=== PATIENT | female | born 1955 | race Caucasian/White ===

== ENCOUNTER 2018-08-16 05:34 | Emergency (ER) | payer OTHER, MEDICAID ==
[~2018-08-16] VITALS: Ht 175.3 cm; Wt 61.2 kg
--- NOTE | 2018-08-16 05:34 | NUR ---
Placed in room 2 . Placed on monitoring specialist, blood pressure machine and pulse oximeter. To gown for exam. Side rails up.
[2018-08-16 05:35] VITALS: BP_SYST 127
--- NOTE | 2018-08-16 05:45 | NUR ---
#18 gauge angiocath placed to RT AC. Use of asceptic technique. Opsite placed over site. Blood return noted. Blood for lab drawn from site. Flushed with 10 cc of normal saline. No evidence of infiltration noted. Patient tolerated well.
--- NOTE | 2018-08-16 05:48 | NUR ---
ER at bedside examining patient.
[2018-08-16] MEDS ORDERED: NACL 0.9% 1,000 ML IV ONE (05:50)
--- NOTE | 2018-08-16 05:59 | NUR ---
Xray performed at the bedside,pt tolerated well.
[2018-08-16] MEDS ORDERED: ASPIRIN 81 MG TAB.CHEW PO ONE (06:00)
[2018-08-16] MEDS ORDERED: KETOROLAC TROMETHAMINE 30 MG VIAL IVP ONE (06:00)
--- NOTE | 2018-08-16 06:00 | NUR ---
Pt c/o mid sternal C/P x 1 hour with non-productive cough x 2 days. Pt states that she came back from [facility] a week ago. VSS.
--- NOTE | 2018-08-16 06:00 | NUR ---
Endorsed care to Nurse Bundy.
[2018-08-16 06:01] LABS: BASOPHILS % (AUTO) 0.5 % (0.0-2.0); EOSINOPHILS # (AUTO) 0.1 K/uL (0.0-0.4); EOSINOPHILS % (AUTO) 2.6 % (0.0-4.0); HEMATOCRIT 42.6 % (36-48); HEMOGLOBIN 14.3 g/dL (12.0-16.0); LYMPHOCYTES # (AUTO) 1.1 K/uL (1.0-5.5); LYMPHOCYTES % (AUTO) 23.4 % (20.5-51.5); MEAN CORPUSCULAR HEMOGLOBIN 29 pg (27-31); MEAN CORPUSCULAR HGB CONC 34 % (32-36); MEAN CORPUSCULAR VOLUME 87 fL (79.0-98.0); MONOCYTES # (AUTO) 0.6 K/uL (0.0-1.0); MONOCYTES % (AUTO) 12.8 % (1.7-9.3); NEUTROPHILS % (AUTO) 60.7 % (40.0-70.0); PLATELET COUNT (AUTO) 288 K/uL (130-430); RED BLOOD CELL COUNT(AUTO) 4.89 MIL/uL (4.2-6.2); RED CELL DISTRIBUTION WIDTH 14.6 % (9.0-15.0); WHITE BLOOD COUNT (AUTO) 4.9 K/uL (4.8-10.8)
[2018-08-16 06:16] LABS: ANION GAP 7 (5-15); CALCIUM 8.4 mg/dL (8.4-11.0); CHLORIDE 101 mmol/L (98-107); CREATININE 0.86 mg/dL (0.55-1.30); GLUCOSE 114 mg/dL (70-99); POTASSIUM 3.8 mmol/L (3.5-5.1); SODIUM SERUM 138 mmol/L (136-145); UREA NITROGEN, BLOOD 12 mg/dL (8-21)
[2018-08-16 06:17] LABS: GFR AFRICAN AMERICAN 86 mL/min (>90)
[2018-08-16 06:25] LABS: ALANINE AMINOTRANSFERASE 45 U/L (12-78); ALBUMIN 3.5 g/dL (3.4-4.8); ASPARTATE AMINOTRANSFERASE 34 U/L (10-37); TOTAL BILIRUBIN 0.3 mg/dL (0.0-1.0)
[2018-08-16 06:56] VITALS: BP_SYST 120
== END 2018-08-16 06:56 | disposition home or self-care (01) ==
LOC: SED 05:34
DX: J06.9 Acute upper respiratory infection, unspecified (principal); R07.89 Other chest pain
CPT/HCPCS: 36415; 71045; 80053; 84484; 85025; 93005; 96374; 99284; J1885; J7030

== ENCOUNTER 2023-10-23 13:09 | Emergency (ER) | payer OTHER, MEDICAID ==
[~2023-10-23] VITALS: Ht 175.3 cm; Wt 74.8 kg
[2023-10-23 13:10] VITALS: BP_SYST 128; PULSE 79; RESP 17; TEMP 97.4; O2SAT 97
[2023-10-23] MEDS: HYDROcodone/ACETAMIN 5-325 MG TAB (NORCO/ VICODIN) PO ONE (15:20)
[2023-10-23 15:43] LABS: BASOPHILS % (AUTO) 0.3 % (0.0-2.0); EOSINOPHILS # (AUTO) 0.3 K/uL (0.0-0.4); EOSINOPHILS % (AUTO) 5.2 % (0.0-4.0); HEMATOCRIT 37.1 % (36-48); HEMOGLOBIN 12.9 g/dL (12.0-16.0); LYMPHOCYTES # (AUTO) 1.5 K/uL (1.0-5.5); LYMPHOCYTES % (AUTO) 23.5 % (20.5-51.5); MEAN CORPUSCULAR HEMOGLOBIN 30 pg (27-31); MEAN CORPUSCULAR HGB CONC 35 % (32-36); MEAN CORPUSCULAR VOLUME 86 fL (79.0-98.0); MONOCYTES # (AUTO) 0.5 K/uL (0.0-1.0); MONOCYTES % (AUTO) 7.6 % (1.7-9.3); NEUTROPHILS % (AUTO) 63.4 % (40.0-70.0); PLATELET COUNT (AUTO) 376 K/uL (130-430); RED BLOOD CELL COUNT(AUTO) 4.33 MIL/uL (4.2-6.2); RED CELL DISTRIBUTION WIDTH 14.1 % (9.0-15.0); WHITE BLOOD COUNT (AUTO) 6.4 K/uL (4.8-10.8)
[2023-10-23 16:06] LABS: CALCIUM 9.1 mg/dL (8.4-11.0); CREATININE 0.86 mg/dL (0.55-1.30); POTASSIUM 4.4 mmol/L (3.5-5.1)
[2023-10-23] MEDS ORDERED: HYDR-3917 PO (16:37)
[2023-10-23 16:44] VITALS: BP_SYST 125; PULSE 79; RESP 17; TEMP 97.4; O2SAT 97
== END 2023-10-23 16:45 | disposition home or self-care (01) ==
LOC: SED 13:09
DX: Z48.03 Encounter for change or removal of drains (principal); Z98.890 Other specified postprocedural states
CPT/HCPCS: 36415; 80048; 85025; 99284

== ENCOUNTER 2023-10-25 13:25 | Emergency (ER) | payer OTHER, MEDICAID ==
[~2023-10-25] VITALS: Ht 175.3 cm; Wt 74.8 kg
[~2023-10-25 13:25] MED LIST: HYDR-3917 PO
[2023-10-25 13:58] VITALS: BP_SYST 149; PULSE 86; RESP 18; TEMP 98.3; O2SAT 98
[2023-10-25] MEDS ORDERED: SULF1TAB48 PO (15:15)
[2023-10-25 16:01] VITALS: BP_SYST 149; PULSE 86; RESP 18; TEMP 98.3; O2SAT 98
== END 2023-10-25 15:32 | disposition home or self-care (01) ==
LOC: SED 13:25
DX: Z48.00 Encounter for change or removal of nonsurgical wound dressing (principal); R53.1 Weakness
CPT/HCPCS: 99283